=== PATIENT | male | born 1950 | race Caucasian/White ===

== ENCOUNTER 2017-01-20 10:08 | Emergency (ER) | payer MEDICARE, OTHER ==
[~2017-01-20] VITALS: Ht 182.9 cm; Wt 90.9 kg
[2017-01-20 10:10] VITALS: TEMP 97.2
[2017-01-20] MEDS ORDERED: TENORMIN 2525 MG/TAB PO (10:26)
[2017-01-20] MEDS ORDERED: SINGULAIR 110 MG/TAB PO (10:27)
[2017-01-20] MEDS ORDERED: CLARITIN 1010 MG/TAB PO (10:27)
[2017-01-20] MEDS ORDERED: MUCUS RELIEF200 MG PO (10:27)
[2017-01-20] MEDS ORDERED: PRAVACHOL80 MG PO (10:27)
[2017-01-20] MEDS ORDERED: 00186-0372-20 IH (10:28)
[2017-01-20] MEDS ORDERED: FLOVENT DI50 MCG/Act IH (10:28)
[2017-01-20 10:48] LABS: BASO # 0.1 (0.0-0.2); BASO % 1.5 % (0.0-2.0); EOS # 0.5 (0.0-0.7); EOS % 7.5 % (0-4.0); GRAN # 2.9 (1.4-6.5); HEMATOCRIT 45.7 % (42.0-52.0); HEMOGLOBIN 15.8 g/dl (13.5-18.0); LYMPH # 2.1 (1.2-3.4); LYMPH % 32.7 % (20.0-51.0); MEAN CELL VOLUME 89 fl (80.0-100.0); MEAN CORPUSCULAR HEMOGLOBIN 31 pg (27.0-31.0); MEAN CORPUSCULAR HGB CONC 35 g/dl (33.0-37.0); MEAN PLATELET VOLUME 8.9 fl (7.4-10.4); MONO # 0.9 (0.1-0.6); MONO % 13.7 % (1.7-9.3); PLATELET COUNT 214 K/mm3 (130-400); RED BLOOD COUNT 5.14 M/mm3 (4.20-5.60); REDCELL DISTRIBUTION WIDTH-CV 12.5 % (11.5-14.5); WHITE BLOOD COUNT 6.5 K/mm3 (4.8-10.8)
[2017-01-20 11:12] LABS: ADJUSTED CALCIUM 9.2 mg/dL (8.4-10.2); ALBUMIN 4.2 gm/dL (3.5-5.0); CALCIUM 9.4 mg/dL (8.4-10.2); CREATININE, serum 1.04 mg/dL (0.66-1.25); POTASSIUM 3.9 mmol/L (3.4-5.0); TOTAL PROTEIN 7.8 gm/dL (6.4-8.2)
[2017-01-20 12:19] VITALS: BP 135/66; PULSE 58
[2017-01-20] MEDS ORDERED: NORCO 325 MG-51 TAB PO (13:00)
== END 2017-01-20 13:22 | disposition home or self-care (01) ==
LOC: COL.ER 10:08
PROVIDERS: Physician Assistant
DX: K40.90 Unilateral inguinal hernia, without obstruction or gangrene, not specified as recurrent (principal); I10 Essential (primary) hypertension; Z87.891 Personal history of nicotine dependence
CPT/HCPCS: J1885; J2270; J2405; J7040; Q9967

== ENCOUNTER 2017-01-30 05:23 | Day surgery (SDC) | payer MEDICARE, OTHER ==
[~2017-01-30] VITALS: Ht 182.9 cm; Wt 109.0 kg
[~2017-01-30 05:23] MED LIST: 00186-0372-20 IH; CLARITIN 1010 MG/TAB PO; FLOVENT DI50 MCG/Act IH; MUCUS RELIEF200 MG PO; NORCO 325 MG-51 TAB PO; PRAVACHOL80 MG PO; SINGULAIR 110 MG/TAB PO; TENORMIN 2525 MG/TAB PO
[2017-01-30] MEDS ORDERED: TUMS500 MG PO (06:10)
[2017-01-30] MEDS ORDERED: MOTRIN 200200 MG/TAB PO (06:10)
[2017-01-30 06:19] VITALS: BP 141/67; PULSE 56; TEMP 97.1
[2017-01-30 09:05] VITALS: BP 112/61; PULSE 68; TEMP 97.5
[2017-01-30 09:20] VITALS: BP 118/62; PULSE 63
[2017-01-30] MEDS ORDERED: NORCO 325 MG-51 TAB PO (09:27)
[2017-01-30] MEDS ORDERED: ZOFRAN ODT4 MG PO (09:28)
[2017-01-30] MEDS ORDERED: COLACE 100100 MG/CAP PO (09:28)
[2017-01-30 09:35] VITALS: BP 139/59; PULSE 66
[2017-01-30 09:50] VITALS: BP 123/62; PULSE 62
== END 2017-01-30 10:20 | disposition home or self-care (01) ==
LOC: SDCO 05:23
DX: K40.90 Unilateral inguinal hernia, without obstruction or gangrene, not specified as recurrent (principal); D17.6 Benign lipomatous neoplasm of spermatic cord; I10 Essential (primary) hypertension; G47.33 Obstructive sleep apnea (adult) (pediatric); Z87.891 Personal history of nicotine dependence
CPT/HCPCS: C1781; J0690; J1100; J1885; J2250; J2405; J2704; J3010; J7120

== ENCOUNTER 2020-02-14 06:16 | Day surgery (SDC) | payer MEDICARE, OTHER ==
[~2020-02-14] VITALS: Ht 182.9 cm; Wt 95.1 kg
[2020-02-14] VITALS (7 sets, daily range): BP systolic 132–145; BP diastolic 60–74; PULSE 64–73; TEMP 98.1–98.5
[~2020-02-14 06:16] MED LIST changes: +COLACE 100100 MG/CAP PO; +MOTRIN 200200 MG/TAB PO; +TUMS500 MG PO; +ZOFRAN ODT4 MG PO
--- NOTE | 2020-02-14 07:00 | NUR ---
Patient in bed resting. Alert and oriented x 3. Initial and 5 page complete. Eccymosis noted to LLE, states he had knee surgery approximately 2 weeks ago. Incision to left knee is well approximated. Medications and allergies reviewed with patient, has been NPO since midnight. IV to right forarm started x 2 attempts. VSS. Denies further needs at this time.
--- NOTE | 2020-02-14 09:18 | NUR ---
Patient up from OR alert and oriented x 3. Post op VSS. Denies pain or further needs at this time.
--- NOTE | 2020-02-14 10:50 | NUR ---
Discharge education reviewed with patient. Educated on activity and has follow up appointment with urology scheduled. All questions answered. Patient tolerating diet without difficulties, voiding red-tinged urine, has been up ambulating in room, steady gait. INT to right forarm discontinued. Denies pain or further needs at this time. Patient out by wheelchair with surgical staff.
== END 2020-02-14 10:50 | disposition home or self-care (01) ==
LOC: SDCO 06:16 → SURG 06:48 → SDCO 08:00
DX: N20.1 Calculus of ureter (principal); E78.00 Pure hypercholesterolemia, unspecified; I10 Essential (primary) hypertension; J44.9 Chronic obstructive pulmonary disease, unspecified; G47.33 Obstructive sleep apnea (adult) (pediatric); K21.9 Gastro-esophageal reflux disease without esophagitis; E78.5 Hyperlipidemia, unspecified; Z96.652 Presence of left artificial knee joint; Z79.52 Long term (current) use of systemic steroids; Z88.1 Allergy status to other antibiotic agents; Z80.42 Family history of malignant neoplasm of prostate
CPT/HCPCS: OP; C1769; C2617; J0690; J1100; J1885; J2405; J2704; J3010; Q9967